=== PATIENT | male | born 1965 | race Caucasian/White ===

== ENCOUNTER → 2018-02-26 | Day surgery (SDC) | payer OTHER ==
[~2018-02-26] MED LIST: DEXT20TA2 PO; EPINEPHrine SYRINGE 1 MG/10 ML SYRINGE ONE; EPINEPHrine SYRINGE 1 MG/10 ML SYRINGE SQ ONE; HYDROmorphone 2 MG/ML VIAL IV PRN; IV RINGERS,LACTATED 1000ML 1,000 ML IV SCH; LIDOCAINE 1% PF 2 ML VIAL. ID PRN; MORPHINE SULFATE 2 MG/ML VIAL. IV PRN; OMEP20CA9 PO; ONDANSETRON PF 4 MG/2 ML VIAL. IV PRN; PROCHLORPERAZINE 10 MG/2 ML VIAL. IV PRN; PROPOFOL 20 ML IV ONE; PROPOFOL 40 ML IV ONE; fentaNYL PF VIAL 100 MCG/2 ML VIAL IV PRN
--- NOTE | 2018-02-26 10:13 | PREOP HP ---
DATE OF SERVICE: 02/26/2018 REQUESTING PHYSICIAN: Dr. Dudley. PRIMARY CARE PHYSICIAN: Dr. Dudley. REASON FOR PROCEDURE: Colorectal cancer screening. HISTORY OF PRESENT ILLNESS: This is a 52-year-old male who presents for colorectal cancer screening. He denies a family history of colon cancer, but does have a family history of colon polyps. ALLERGIES: No known drug allergies. PAST MEDICAL HISTORY: Reflux. FAMILY MEDICAL HISTORY: Significant for colon polyps. SOCIAL HISTORY: He drinks alcohol, but denies tobacco or IV drug abuse. PAST SURGICAL HISTORY: 1. Eye surgery. 2. Hernia repair. 3. Vasectomy. REVIEW OF SYSTEMS: A 13-point review of systems was done and is positive as per HPI and otherwise negative. PHYSICAL EXAMINATION: VITAL SIGNS: He is afebrile and his vital signs are stable. GENERAL: He is a well-developed, well-nourished male, in no apparent distress. HEENT: Oropharynx is clear. CARDIOVASCULAR: S1, S2. LUNGS: Clear. ABDOMEN: Active bowel sounds, soft, nontender, nondistended. EXTREMITIES: No edema. NEUROLOGIC: Awake, alert and oriented x 3. ASSESSMENT AND PLAN: The risks and benefits of the colonoscopy were explained and he has agreed to proceed. Thank you for allowing me to participate in the care of this patient. JERRY ZACARIAS MD DR: AMBAR/darvin JOB#: [id number] / [id number]
[2018-02-26 10:41] VITALS: BP 182/107
--- NOTE | 2018-03-09 15:07 | PATHOLOGY ---
[facility] Accession Number: [id number] . 01 Material submitted: . PART A: TRANSVERSE COLON POLYP PART B: RECTAL POLYP . 01 Clinical history: . Polyps . 02 Diagnosis: A. Colon biopsies, transverse colon: - Hyperplastic polyp showing focal erosion, mild acute inflammation and marked chronic inflammation. . B. Colorectal biopsy, rectal polyp: - Gastric heterotopia. See comment. P03/09/2018 . 02 Comment: An extensive investigation is conducted to ensure the integrity of specimen B. Sections of the rectal polyp reveal polypoid segments of gastric body mucosa showing superficial chronic inflammation and containing scattered lymphoid aggregates. There are a few minute segments of focally contiguous rectal mucosa identified. 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 Heterotopic gastric tissue is the most common large intestinal heterotopia. It rarely affects the rectum. Rectal gastric heterotopias may be associated with other congenital anomalies, including rectovesical fistula, incomplete colonic rotation, vertebral body defects, duplication, rectal diverticula, scoliosis, and megacolon. Gastric heterotopia typically forms small nodules and polyps measuring up to 1.5 cm in maximum dimensions. Heterotopic foci are usually surrounded by normal-appearing mucosa. It is interesting that some lesions may have central depressions which mimic superficial ulcerating cancers. Heterotopic gastric tissue in the rectum frequently lies in the posterolateral region, 5 to 8 cm from the anal verge. One of the segments of rectal mucosa in the rectal biopsy does contain a few glands suspicious for a minute tubular adenoma (1 mm). There is no high-grade dysplasia or evidence of malignancy. . The case is also examined by Dr. Sagastume, who concurs with the diagnosis. . Reference: goran Dickens M.D.. [employer] Non Tumor pathology, Volume 5, Gastrointestinal Diseases, pp 69-70, 2007. . The results are telephoned to Dr. He on 03/09/2018 at 11:30 am. (JPM:[facility] 03/09/2018) . 02 Electronically signed: . Jaylon Black MD, Pathologist NPI- [id number] . 01 Gross description: . A. Received in formalin labeled "Avila, Jose, transverse colon," are 5 segments of cifuentes soft tissue measuring 2.0 x 1.8 x 0.6 cm in aggregate dimensions and ranging from 0.3 to 0.8 cm in maximum dimension. The specimen is submitted entirely in cassette A1. . B. Received in formalin labeled "Avila, Jose, rectal polyp," are multiple segments of cifuentes soft tissue measuring 1.6 x 0.9 x 0.3 cm in aggregate dimensions. The specimen is filtered and entirely submitted in cassette B1. (TSD; 02/26/2018) TOB/TOB . 02 Pathologist provided ICD-10: K63.5, K63.3, K52.9 . 02 CPT . 377109, 166913 Specimen Comment: A courtesy copy of this report has been sent to Specimen Comment: [phone], . Specimen Comment: Report sent to / DR SU Specimen Comment: A duplicate report has been generated due to demographic updates. Performed at: 01 [facility] [address] [facility] [address], [place] [id number] MD Luke Macias MD Phone: [phone] Performed at: 02 [facility] [address] [place], [place] [id number] MD Jaylon Black MD Phone: [phone]
== END | disposition home or self-care (01) ==
LOC: SURG 07:54
PROVIDERS: ATTEND Internal Medicine Gastroenterology
DX: Z12.11 Encounter for screening for malignant neoplasm of colon (principal); K63.5 Polyp of colon; K63.3 Ulcer of intestine; K62.1 Rectal polyp; K52.9 Noninfective gastroenteritis and colitis, unspecified; K64.0 First degree hemorrhoids; Z83.71 Family history of colonic polyps; K21.9 Gastro-esophageal reflux disease without esophagitis; Z72.89 Other problems related to lifestyle; Z98.52 Vasectomy status; Z98.890 Other specified postprocedural states
CPT/HCPCS: 45380; 45381; 45385; 88305; J0171; J2704; 45378